=== PATIENT | male | born 1950 | race American Indian/Alaskan Native ===

== ENCOUNTER 2017-07-10 10:12 | Observation (INO) | payer MEDICARE, OTHER ==
[2017-07-10] MEDS ORDERED: NACL 0.9% 1000 ML 1,000 ML IV ONE ×2 (11:45→17:57)
[2017-07-10] MEDS ORDERED: ANTIVERT PO ONE (11:52)
--- NOTE | 2017-07-10 12:04 | Emergency Department Report ---
ED Dizziness HPI - General Chief Complaint: Dizziness Stated Complaint: DIZZINESS, HIGH BLOOD PRESSURE Time Seen by Provider: 07/10/17 11:45 Source: patient Mode of arrival: Ambulatory Limitations: No Limitations - History of Present Illness Initial Comments: 67-year-old male with past medical history of hypertension came in complaining of dizziness for 1 day. Patient said that he is feels dizzy as he gets up. Patient does state that he is dizzy with head movement. Patient denies any nausea vomiting chest pain shortness of breath. Patient denies any fever chills. Patient in no acute distress. Patient relaxing in bed. -: Sudden Timing: sudden onset Description: "room spinning", lightheadedness History of Same: No History of Trauma: No Severity: mild Improves With: remaining still Worsens With: movement Associated Symptoms: denies other symptoms. denies: chest pain, confusion, cough, diaphoresis, fever/chills, loss of appetite, malaise, rash, seizure, shortness of breath, syncope, weakness - Related Data Allergies Allergy/AdvReac Type Severity Reaction Status Date / Time No Known Allergies Allergy Unverified 07/10/17 10:15 ED Review of Systems ROS: Stated complaint: DIZZINESS, HIGH BLOOD PRESSURE Other details as noted in HPI Constitutional: denies: chills, fever Eyes: denies: eye pain, eye discharge, vision change ENT: denies: ear pain, throat pain Respiratory: denies: cough, shortness of breath, wheezing Cardiovascular: denies: chest pain, palpitations Endocrine: no symptoms reported Gastrointestinal: denies: abdominal pain, nausea, diarrhea Genitourinary: denies: urgency, dysuria Musculoskeletal: denies: back pain, joint swelling, arthralgia Skin: denies: rash, lesions Neurological: denies: headache, weakness, paresthesias Psychiatric: denies: anxiety, depression Hematological/Lymphatic: denies: easy bleeding, easy bruising ED Past Medical Hx - Past Medical History Hx Hypertension: Yes Hx GERD: Yes - Social History Smoking Status: Never Smoker Substance Use Type: None ED Physical Exam - General Limitations: No Limitations General appearance: alert, in no apparent distress - Head Head exam: Present: atraumatic, normocephalic - Eye Eye exam: Present: normal appearance - ENT ENT exam: Present: mucous membranes moist - Neck Neck exam: Present: normal inspection - Respiratory Respiratory exam: Present: normal lung sounds bilaterally. Absent: respiratory distress - Cardiovascular Cardiovascular Exam: Present: regular rate, normal rhythm. Absent: systolic murmur, diastolic murmur, rubs, gallop - GI/Abdominal GI/Abdominal exam: Present: soft, normal bowel sounds - Rectal Rectal exam: Present: deferred - Extremities Exam Extremities exam: Present: normal inspection - Back Exam Back exam: Present: normal inspection - Neurological Exam Neurological exam: Present: alert, oriented X3 - Psychiatric Psychiatric exam: Present: normal affect, normal mood - Skin Skin exam: Present: warm, dry, intact, normal color. Absent: rash ED Course Vital Signs 07/10/17 10:15 Temperature 98.3 F Pulse Rate 57 L Respiratory 20 Rate Blood Pressure 176/92 O2 Sat by Pulse 97 Oximetry Critical care attestation.: If time is entered above; I have spent that time in minutes in the direct care of this critically ill patient, excluding procedure time. ED Disposition Condition: Stable Referrals: KARSON MENDOZA MD [Primary Care Provider] - 3-5 Days
--- NOTE | 2017-07-10 12:14 | Emergency Department Report ---
Blank Doc - Documentation Documentation: 67-year-old male past medical history of hypertension came in for dizziness for 1 day. Patient states is worsened with movement. He states that he is having hard time ambulating. He denies any nausea vomiting chest pain shortness of breath. P: blood work, cardiac enzymes, Ct head, and possible admission
[2017-07-10 12:28] LABS: Basophils # (Auto) 0.1 K/mm3 (0.0-0.1); Basophils % (Auto) 1.1 % (0.0-1.8); Eosinophils # (Auto) 0.1 K/mm3 (0.0-0.4); Eosinophils % (Auto) 1.3 % (0.0-4.3); Hematocrit 44.1 % (35.5-45.6); Hemoglobin 14.7 gm/dl (11.8-15.2); Lymphocytes # (Auto) 0.9 K/mm3 (1.2-5.4); Lymphocytes % (Auto) 16.1 % (13.4-35.0); Mean Corpuscular HGB Conc 33 % (32-34); Mean Corpuscular Hemoglobin 29 pg (28-32); Mean Corpuscular Volume 88 fl (84-94); Monocytes # (Auto) 0.4 K/mm3 (0.0-0.8); Monocytes % (Auto) 7.1 % (0.0-7.3); Platelet Count 197 K/mm3 (140-440); Red Blood Count 5.01 M/mm3 (3.65-5.03); Red Cell Distribution Width 14.6 % (13.2-15.2)
[2017-07-10 12:36] LABS: INR 0.9 (0.87-1.13)
[2017-07-10] MEDS ORDERED: ZOFRAN IV ONE (12:41)
--- NOTE | 2017-07-10 12:41 | Emergency Department Report ---
ED General Adult HPI - General Chief complaint: Dizziness Stated complaint: DIZZINESS, HIGH BLOOD PRESSURE Time Seen by Provider: 07/10/17 11:45 Source: patient Mode of arrival: Ambulatory Limitations: No Limitations - History of Present Illness Initial comments: Patient said he woke up this morning and he was feeling very dizzy and he had difficulty walking with unsteady gait. He denies any focal neurological weakness but said he tries to walk he is falling from side to side. He also had a slight headache and nausea. -: Sudden, This morning Location: head Radiation: non-radiation Severity scale (0 -10): 5 Consistency: constant Improves with: other (Remaining still) Worsens with: movement Associated Symptoms: other (Nausea) Treatments Prior to Arrival: none - Related Data Allergies Allergy/AdvReac Type Severity Reaction Status Date / Time No Known Allergies Allergy Unverified 07/10/17 10:15 ED Review of Systems ROS: Stated complaint: DIZZINESS, HIGH BLOOD PRESSURE Other details as noted in HPI Comment: All other systems reviewed and negative Constitutional: denies: chills, fever, weakness Eyes: denies: eye pain, vision change ENT: denies: ear pain, congestion Respiratory: denies: cough, shortness of breath Cardiovascular: denies: chest pain, palpitations Endocrine: no symptoms reported Gastrointestinal: nausea. denies: abdominal pain, vomiting, diarrhea Genitourinary: denies: dysuria, frequency, hematuria Musculoskeletal: denies: back pain, joint swelling, arthralgia Skin: denies: rash, lesions, change in color Neurological: denies: headache, numbness, paresthesias Psychiatric: denies: anxiety, depression Hematological/Lymphatic: denies: easy bleeding, easy bruising ED Past Medical Hx - Past Medical History Hx Hypertension: Yes Hx GERD: Yes - Social History Smoking Status: Never Smoker Substance Use Type: None ED Physical Exam - General Limitations: No Limitations General appearance: alert, in no apparent distress - Head Head exam: Present: atraumatic, normocephalic, normal inspection - Eye Eye exam: Present: normal appearance, PERRL, EOMI Pupils: Present: normal accommodation - ENT ENT exam: Present: normal exam, mucous membranes moist - Neck Neck exam: Present: normal inspection, full ROM. Absent: tenderness - Respiratory Respiratory exam: Present: normal lung sounds bilaterally. Absent: respiratory distress, wheezes, rhonchi - Cardiovascular Cardiovascular Exam: Present: normal rhythm, bradycardia, normal heart sounds - GI/Abdominal GI/Abdominal exam: Present: soft, normal bowel sounds. Absent: tenderness, guarding, rebound - Extremities Exam Extremities exam: Present: normal inspection, full ROM, normal capillary refill. Absent: tenderness, pedal edema - Back Exam Back exam: Present: normal inspection, full ROM - Neurological Exam Neurological exam: Present: alert, oriented X3, CN II-XII intact, abnormal gait. Absent: motor sensory deficit - Psychiatric Psychiatric exam: Present: normal affect, normal mood - Skin Skin exam: Present: warm, dry, intact, normal color. Absent: rash ED Course Vital Signs 07/10/17 07/10/17 07/10/17 10:15 12:40 13:49 Temperature 98.3 F 97.7 F Pulse Rate 57 L 49 L Respiratory 20 19 13 Rate Blood Pressure 176/92 Blood Pressure 158/87 [Left] O2 Sat by Pulse 97 97 97 Oximetry 07/10/17 14:42 Temperature Pulse Rate 59 L Respiratory 16 Rate Blood Pressure Blood Pressure 151/84 [Left] O2 Sat by Pulse 98 Oximetry - Reevaluation(s) Reevaluation #1: 07/10/17 18:00 I consulted the tele neurologist financial operations consultant Dr Norris. He recommended admitting the patient to the hospital for further evaluation and management. I discussed patient care with the hospitalist on-call Dr. Subramanian. He will admit the patient for observation and further evaluation and management. ED Medical Decision Making - Lab Data Result diagrams: 07/10/17 12:07 07/10/17 12:07 - EKG Data -: EKG Interpreted by Me EKG shows normal: sinus rhythm Rate: bradycardia - EKG Data When compared to previous EKG there are: previous EKG unavailable Interpretation: other (No STEMI) - Radiology Data Radiology results: report reviewed, image reviewed MRI Brain without contrast showed no acute CVA or brain mass. - Medical Decision Making Unsteady gait. Dizziness. Hypertension. Critical care attestation.: If time is entered above; I have spent that time in minutes in the direct care of this critically ill patient, excluding procedure time. ED Disposition Clinical Impression: RYAN (acute kidney injury), Unsteady gait Hypertension Qualifiers: Hypertension type: unspecified Qualified Code(s): I10 - Essential (primary) hypertension Disposition: OP ADMIT IP TO THIS HOSP Is pt being admited?: Yes Does the pt Need Aspirin: Yes Condition: Stable Instructions: Hypertension (ED) Referrals: KARSON MENDOZA MD [Primary Care Provider] - 3-5 Days Time of Disposition: 18:03
[2017-07-10 12:44] LABS: Alanine Aminotransferase 21 units/L (7-56); Albumin 4.4 g/dL (3.9-5); BUN/Creatinine Ratio 16; Blood Urea Nitrogen 28 mg/dL (9-20); Calcium 9.5 mg/dL (8.4-10.2); Hemolysis Index 5
[2017-07-10 13:02] LABS: Creatine Kinase MB 4.6 ng/mL (0.0-4.0)
[2017-07-10 14:23] LABS: Bilirubin,Urine NEG (Negative); Blood,Urine MOD (Negative); Color,Urine Yellow (Yellow); Mucus,Urine FEW /HPF; Urobilinogen,Urine < 2.0 mg/dL (<2.0)
--- NOTE | 2017-07-10 14:44 | Magnetic Resonance Report ---
FINAL REPORT EXAM: MR BRAIN WO CON HISTORY: Unsteady gait, Dizziness. TECHNIQUE: Multiplanar multisequence brain MR imaging without IV contrast. PRIORS: None. FINDINGS: The included air filled sinuses contain no acute fluid level. Foci of hyperintensity in the cerebral white matter, while nonspecific, are present and usually attributed to chronic ischemic gliosis. It can occur secondary to the normal aging process, hypertension, vasculitis, migraine related changes, or arterial sclerotic vascular disease. The differential includes any cause of gliosis as well as demyelination in the appropriate clinical setting. There is ventricular and sulcal prominence compatible with global symmetric cerebrocortical atrophy. The brain is without mass, mass effect, hemorrhage, or acute infarct. There are no areas of brain restricted diffusion to suggest an acute ischemic infarct. There is no midline shift or brain edema. IMPRESSION: No acute CVA or brain mass
[2017-07-10] MEDS ORDERED: BABY ASPIRIN PO ONE (18:06)
--- NOTE | 2017-07-10 19:41 | History and Physical Report ---
History of Present Illness Date of examination: 07/10/17 Date of admission: 07/10/17 18:50 Chief complaint: Chief complaint: Dizziness and unsteady gait for 1 day History of present illness: History of Present Illness: 67-year-old -[place] male with history of hypertension and gout comes in for feeling dizzy and unsteady gait. No shortness of breath no chest pain. Patient has not been taking his blood pressure medications regularly. No focal deficits. No nasal regurgitation of fluids. No fever no chills No recent travel Past Medical History Hx Hypertension: Yes Hx GERD: Yes Social History Smoking Status: Never Smoker Substance Use Type: None Family history Hypertension Surgical history None Review of Systems ROS: Stated complaint: DIZZINESS, HIGH BLOOD PRESSURE Other details as noted in HPI Comment: All other systems reviewed and negative Constitutional: denies: chills, fever, weakness Eyes: denies: eye pain, vision change ENT: denies: ear pain, congestion Respiratory: denies: cough, shortness of breath Cardiovascular: denies: chest pain, palpitations Endocrine: no symptoms reported Gastrointestinal: nausea. denies: abdominal pain, vomiting, diarrhea Genitourinary: denies: dysuria, frequency, hematuria Musculoskeletal: denies: back pain, joint swelling, arthralgia Skin: denies: rash, lesions, change in color Neurological: denies: headache, numbness, paresthesias Psychiatric: denies: anxiety, depression Hematological/Lymphatic: denies: easy bleeding, easy bruising Medications and Allergies Allergies Allergy/AdvReac Type Severity Reaction Status Date / Time No Known Allergies Allergy Unverified 07/10/17 10:15 Home Medications Medication Instructions Recorded Confirmed Last Taken Type Allopurinol [Zyloprim] 100 mg PO QDAY 07/10/17 07/10/17 07/10/17 08:00 History Hydrochlorothiazide 25 mg PO DAILY 07/10/17 07/10/17 07/10/17 08:00 History Losartan Potassium [Cozaar] 50 mg PO DAILY 07/10/17 07/10/17 07/10/17 08:00 History Sodium Bicarbonate 650 mg PO BID 07/10/17 07/10/17 07/10/17 19:00 History Exam - Constitutional Vitals: Temp Pulse Resp BP Pulse Ox 97.6 F 46 L 20 152/75 97 07/10/17 18:49 07/10/17 18:49 07/10/17 18:49 07/10/17 18:49 07/10/17 18:49 General appearance: Present: no acute distress, well-nourished - EENT Eyes: Present: PERRL ENT: hearing intact, clear oral mucosa - Neck Neck: Present: supple, normal ROM - Respiratory Respiratory effort: normal Respiratory: bilateral: CTA - Cardiovascular Heart rate: 80 Rhythm: regular Heart Sounds: Present: S1 & S2. Absent: rub, click - Extremities Extremities: pulses symmetrical, No edema Peripheral Pulses: within normal limits - Abdominal General gastrointestinal: Present: soft, non-tender, non-distended, normal bowel sounds Male genitourinary: Present: normal - Rectal Rectal Exam: deferred - Integumentary Integumentary: Present: clear, warm, dry - Musculoskeletal Musculoskeletal: gait normal, strength equal bilaterally - Psychiatric Psychiatric: appropriate mood/affect, intact judgment & insight - Neurologic Neurologic: CNII-XII intact, moves all extremities - Allied Health Allied health notes reviewed: nursing, case management Results - Labs CBC & Chem 7: 07/10/17 12:07 07/10/17 12:07 Labs: Laboratory Last Values WBC 5.3 K/mm3 (4.5-11.0) 07/10/17 12:07 RBC 5.01 M/mm3 (3.65-5.03) 07/10/17 12:07 Hgb 14.7 gm/dl (11.8-15.2) 07/10/17 12:07 Hct 44.1 % (35.5-45.6) 07/10/17 12:07 MCV 88 fl (84-94) 07/10/17 12:07 MCH 29 pg (28-32) 07/10/17 12:07 MCHC 33 % (32-34) 07/10/17 12:07 RDW 14.6 % (13.2-15.2) 07/10/17 12:07 Plt Count 197 K/mm3 (140-440) 07/10/17 12:07 Lymph % (Auto) 16.1 % (13.4-35.0) 07/10/17 12:07 [place] % (Auto) 7.1 % (0.0-7.3) 07/10/17 12:07 Eos % (Auto) 1.3 % (0.0-4.3) 07/10/17 12:07 Baso % (Auto) 1.1 % (0.0-1.8) 07/10/17 12:07 Lymph # 0.9 K/mm3 (1.2-5.4) L 07/10/17 12:07 [place] # 0.4 K/mm3 (0.0-0.8) 07/10/17 12:07 Eos # 0.1 K/mm3 (0.0-0.4) 07/10/17 12:07 Baso # 0.1 K/mm3 (0.0-0.1) 07/10/17 12:07 Seg Neutrophils % 74.4 % (40.0-70.0) H 07/10/17 12:07 Seg Neutrophils # 4.0 K/mm3 (1.8-7.7) 07/10/17 12:07 PT 12.6 Sec. (12.2-14.9) 07/10/17 12:07 INR 0.90 (0.87-1.13) 07/10/17 12:07 APTT 32.3 Sec. (24.2-36.6) 07/10/17 12:07 Sodium 138 mmol/L (137-145) 07/10/17 12:07 Potassium 4.0 mmol/L (3.6-5.0) 07/10/17 12:07 Chloride 99.5 mmol/L (98-107) 07/10/17 12:07 Carbon Dioxide 28 mmol/L (22-30) 07/10/17 12:07 Anion Gap 15 mmol/L 07/10/17 12:07 BUN 28 mg/dL (9-20) H 07/10/17 12:07 Creatinine 1.8 mg/dL (0.8-1.5) H 07/10/17 12:07 Estimated GFR 46 ml/min 07/10/17 12:07 BUN/Creatinine Ratio 16 % 07/10/17 12:07 Glucose 108 mg/dL (75-100) H 07/10/17 12:07 Calcium 9.5 mg/dL (8.4-10.2) 07/10/17 12:07 Total Bilirubin 0.50 mg/dL (0.1-1.2) 07/10/17 12:07 AST 25 units/L (5-40) 07/10/17 12:07 ALT 21 units/L (7-56) 07/10/17 12:07 Alkaline Phosphatase 80 units/L (35-129) 07/10/17 12:07 Total Creatine Kinase 448 units/L (55-170) H 07/10/17 12:07 CK-MB (CK-2) 4.6 ng/mL (0.0-4.0) H 07/10/17 12:07 CK-MB (CK-2) Rel Index 1.0 (0-4) 07/10/17 12:07 Troponin T < 0.010 ng/mL (0.00-0.029) 07/10/17 12:07 Total Protein 7.8 g/dL (6.3-8.2) 07/10/17 12:07 Albumin 4.4 g/dL (3.9-5) 07/10/17 12:07 Albumin/Globulin Ratio 1.3 % 07/10/17 12:07 Urine Color Yellow (Yellow) 07/10/17 14:04 Urine Turbidity Clear (Clear) 07/10/17 14:04 Urine pH 5.0 (5.0-7.0) 07/10/17 14:04 Ur Specific [place] 1.016 (1.003-1.030) 07/10/17 14:04 Urine Protein 100 mg/dl mg/dL (Negative) 07/10/17 14:04 Urine Glucose (UA) Neg mg/dL (Negative) 07/10/17 14:04 Urine Ketones Neg mg/dL (Negative) 07/10/17 14:04 Urine Blood Mod (Negative) 07/10/17 14:04 Urine Nitrite Neg (Negative) 07/10/17 14:04 Urine Bilirubin Neg (Negative) 07/10/17 14:04 Urine Urobilinogen < 2.0 mg/dL (<2.0) 07/10/17 14:04 Ur Leukocyte Esterase Neg (Negative) 07/10/17 14:04 Urine WBC (Auto) 1.0 /HPF (0.0-6.0) 07/10/17 14:04 Urine RBC (Auto) 3.0 /HPF (0.0-6.0) 07/10/17 14:04 Urine Mucus Few /HPF 07/10/17 14:04 - Imaging and Cardiology EKG: report reviewed (sinus bradycardia heart rate of 51 permanent) Imaging and Cardiology: MRI brain no acute severe brain metastases Assessment and Plan Advance Directives: Yes (full code) VTE prophylaxis?: Chemical Plan of care discussed with patient/family: Yes - Patient Problems (1) RYAN (acute kidney injury) Current Visit: Yes Status: Acute Plan to address problem: Probably secondary to hydrochlorothiazide We will stop the hydrochlorothiazide IV fluids for now Check BMP again tomorrow Nephrology consult if necessary (2) Hypertension Current Visit: Yes Status: Chronic Qualifiers: Hypertension type: essential hypertension Qualified Code(s): I10 - Essential (primary) hypertension Plan to address problem: Continue antihypertensives but to hold hydrochlorothiazide (3) Unsteady gait Current Visit: Yes Status: Acute Plan to address problem: Unsteady gait resolved Patient able to walk normally Have made the patient walked in the emergency room Unsteady gait transient probably secondary to high blood pressure (4) DVT prophylaxis Current Visit: Yes Status: Acute Plan to address problem: Heparin 5000 every 12
[2017-07-10] MEDS ORDERED: ZOFRAN IV PRN (19:48)
[2017-07-10] MEDS ORDERED: TYLENOL PO PRN (19:48)
[2017-07-10] MEDS ORDERED: SODIUM CHLORIDE FLUSH SYRINGE 10 ML IV PRN (19:48)
[2017-07-10] MEDS: COZAAR PO SCH (20:31)
[2017-07-10] MEDS: ZYLOPRIM PO SCH (20:32)
[2017-07-10] MEDS: NACL 0.45% 1000 ML 1,000 ML IV SCH (20:34)
[2017-07-10] MEDS: SODIUM BICARBONATE PO SCH (21:45)
[2017-07-10] MEDS: SODIUM CHLORIDE FLUSH SYRINGE 10 ML IV SCH (21:45)
[2017-07-10] MEDS ORDERED: COREG PO SCH (22:00)
[2017-07-11 08:42] VITALS: BP 144/84
[2017-07-11] MEDS: COZAAR PO SCH (09:34)
[2017-07-11] MEDS: SODIUM BICARBONATE PO SCH (09:35)
[2017-07-11] MEDS: ZYLOPRIM PO SCH (09:35)
[2017-07-11] MEDS: SODIUM CHLORIDE FLUSH SYRINGE 10 ML IV SCH (09:37)
[2017-07-11] MEDS: NACL 0.45% 1000 ML 1,000 ML IV SCH (09:54)
[2017-07-11] MEDS ORDERED: NORVASC PO SCH (10:00)
[2017-07-11 10:11] LABS: Calcium 8.7 mg/dL (8.4-10.2)
--- NOTE | 2017-07-11 11:25 | Progress Note ---
Assessment and Plan Assessment and plan: --Acute kidney injury; secondary to ATN Continue gentle hydration, closely monitor renal function, avoid nephrotoxins Nephrology consult if needed,creatinine improved from 1.8-1.6 --Hypernatremia; probably secondary to aggressive IV hydration with normal saline, will change to half normal, encourage patient to drink plenty of fluids --Unsteady gait; MRI brain negative, physical therapy occupational therapy --Hypertension; continue current antihypertensives, Norvasc and Cozaar and when necessary medications --History of gout; continue allopurinol DC hydrochlorothiazide, --DVT prophylaxis; Lovenox renal dose closely monitor the patient and adjust the management as needed Possible discharge in 1-2 days if stable Hospitalist Physical - Constitutional Vitals: Temp Pulse Resp BP Pulse Ox 97.6 F 46 L 20 144/84 97 07/11/17 08:01 07/11/17 08:01 07/11/17 08:01 07/11/17 08:01 07/11/17 08:01 General appearance: Present: no acute distress, well-nourished Results - Labs CBC & Chem 7: 07/10/17 12:07 07/11/17 09:18 Labs: Laboratory Last Values WBC 5.3 K/mm3 (4.5-11.0) 07/10/17 12:07 RBC 5.01 M/mm3 (3.65-5.03) 07/10/17 12:07 Hgb 14.7 gm/dl (11.8-15.2) 07/10/17 12:07 Hct 44.1 % (35.5-45.6) 07/10/17 12:07 MCV 88 fl (84-94) 07/10/17 12:07 MCH 29 pg (28-32) 07/10/17 12:07 MCHC 33 % (32-34) 07/10/17 12:07 RDW 14.6 % (13.2-15.2) 07/10/17 12:07 Plt Count 197 K/mm3 (140-440) 07/10/17 12:07 Lymph % (Auto) 16.1 % (13.4-35.0) 07/10/17 12:07 [place] % (Auto) 7.1 % (0.0-7.3) 07/10/17 12:07 Eos % (Auto) 1.3 % (0.0-4.3) 07/10/17 12:07 Baso % (Auto) 1.1 % (0.0-1.8) 07/10/17 12:07 Lymph # 0.9 K/mm3 (1.2-5.4) L 07/10/17 12:07 [place] # 0.4 K/mm3 (0.0-0.8) 07/10/17 12:07 Eos # 0.1 K/mm3 (0.0-0.4) 07/10/17 12:07 Baso # 0.1 K/mm3 (0.0-0.1) 07/10/17 12:07 Seg Neutrophils % 74.4 % (40.0-70.0) H 07/10/17 12:07 Seg Neutrophils # 4.0 K/mm3 (1.8-7.7) 07/10/17 12:07 PT 12.6 Sec. (12.2-14.9) 07/10/17 12:07 INR 0.90 (0.87-1.13) 07/10/17 12:07 APTT 32.3 Sec. (24.2-36.6) 07/10/17 12:07 Sodium 147 mmol/L (137-145) H D 07/11/17 09:18 Potassium 4.4 mmol/L (3.6-5.0) 07/11/17 09:18 Chloride 110.0 mmol/L (98-107) H 07/11/17 09:18 Carbon Dioxide 25 mmol/L (22-30) 07/11/17 09:18 Anion Gap 16 mmol/L 07/11/17 09:18 BUN 22 mg/dL (9-20) H 07/11/17 09:18 Creatinine 1.6 mg/dL (0.8-1.5) H 07/11/17 09:18 Estimated GFR 52 ml/min 07/11/17 09:18 BUN/Creatinine Ratio 14 % 07/11/17 09:18 Glucose 122 mg/dL (75-100) H 07/11/17 09:18 Calcium 8.7 mg/dL (8.4-10.2) 07/11/17 09:18 Total Bilirubin 0.50 mg/dL (0.1-1.2) 07/10/17 12:07 AST 25 units/L (5-40) 07/10/17 12:07 ALT 21 units/L (7-56) 07/10/17 12:07 Alkaline Phosphatase 80 units/L (35-129) 07/10/17 12:07 Total Creatine Kinase 448 units/L (55-170) H 07/10/17 12:07 CK-MB (CK-2) 4.6 ng/mL (0.0-4.0) H 07/10/17 12:07 CK-MB (CK-2) Rel Index 1.0 (0-4) 07/10/17 12:07 Troponin T < 0.010 ng/mL (0.00-0.029) 07/10/17 12:07 Total Protein 7.8 g/dL (6.3-8.2) 07/10/17 12:07 Albumin 4.4 g/dL (3.9-5) 07/10/17 12:07 Albumin/Globulin Ratio 1.3 % 07/10/17 12:07 Urine Color Yellow (Yellow) 07/10/17 14:04 Urine Turbidity Clear (Clear) 07/10/17 14:04 Urine pH 5.0 (5.0-7.0) 07/10/17 14:[address] 1.016 (1.003-1.030) 07/10/17 14:04 Urine Protein 100 mg/dl mg/dL (Negative) 07/10/17 14:04 Urine Glucose (UA) Neg mg/dL (Negative) 07/10/17 14:04 Urine Ketones Neg mg/dL (Negative) 07/10/17 14:04 Urine Blood Mod (Negative) 07/10/17 14:04 Urine Nitrite Neg (Negative) 07/10/17 14:04 Urine Bilirubin Neg (Negative) 07/10/17 14:04 Urine Urobilinogen < 2.0 mg/dL (<2.0) 07/10/17 14:04 Ur Leukocyte Esterase Neg (Negative) 07/10/17 14:04 Urine WBC (Auto) 1.0 /HPF (0.0-6.0) 07/10/17 14:04 Urine RBC (Auto) 3.0 /HPF (0.0-6.0) 07/10/17 14:04 Urine Mucus Few /HPF 07/10/17 14:04
[2017-07-11 11:27] LABS: Creatine Kinase MB 2.7 ng/mL (0.0-4.0)
[2017-07-11] MEDS ORDERED: D5W 1,000 ML IV SCH (12:00)
--- NOTE | 2017-07-11 15:17 | Discharge Summary ---
Providers - Providers Date of Admission: 07/10/17 18:50 Date of discharge: 07/11/17 Attending physician: MEGAN ACEVEDO Primary care physician: KARSON MENDOZA Hospitalization Condition: Stable Disposition: DC-01 TO HOME OR SELFCARE Time spent for discharge: 31 min Core Measure Documentation - Palliative Care Palliative Care/ Comfort Measures: Not Applicable - Core Measures Any of the following diagnoses?: none Exam - Constitutional Vitals: Temp Pulse Resp BP Pulse Ox 97.6 F 46 L 20 144/84 97 07/11/17 08:01 07/11/17 08:01 07/11/17 08:01 07/11/17 08:01 07/11/17 08:01 General appearance: Present: no acute distress, well-nourished - EENT Eyes: Present: PERRL, EOM intact - Neck Neck: Present: supple, normal ROM - Respiratory Respiratory effort: normal Respiratory: negative: rales, rhonchi, wheezing - Cardiovascular Rhythm: regular Heart Sounds: Present: S1 & S2 - Extremities Extremities: no ischemia, No edema - Abdominal General gastrointestinal: Present: soft, non-tender, non-distended - Integumentary Integumentary: Present: clear, warm - Musculoskeletal Musculoskeletal: strength equal bilaterally - Psychiatric Psychiatric: appropriate mood/affect, cooperative - Neurologic Neurologic: CNII-XII intact, moves all extremities Plan Activity: advance as tolerated, fall precautions Diet: low salt Additional Instructions: Fall precautions. If you have chest pain shortness of breath recurrent episodes of dizziness contact M.D. or go to emergency room Follow up with: KARSON MENDOZA MD [Primary Care Provider] - 3-5 Days Prescriptions: amLODIPine [Norvasc] 10 mg PO QDAY #30 tablet Losartan [Cozaar] 100 mg PO DAILY #30 tablet
--- NOTE | 2017-07-14 12:57 | XRay Report ---
ROUTINE CHEST, TWO VIEWS: HISTORY: Lightheadedness, dizziness. The trachea, heart, mediastinal contour, lung byers and bony thorax are unremarkable. IMPRESSION: Unremarkable chest x-ray.
--- NOTE | 2017-07-14 12:57 | Cat Scan Report ---
CT HEAD WITHOUT CONTRAST: HISTORY: Lightheadedness, dizziness. TECHNIQUE: Sequential 2.5mm CT images. COMPARISON: none. FINDINGS: Cerebral Parenchyma: Within normal limits. Cerebellum: Within normal limits. Brainstem: Within normal limits. Ventricles: Normal. Sella: Normal. Extra-axial spaces: Normal. Basal Cisterns: Normal. Intracranial Hemorrhage: None. Midline Shift: None. Calvarium: Normal. Sinuses: Normal. Mastoid Air Cells: Normal. Visualized Orbits: Normal. IMPRESSION: Cranial CT scan within normal limits.
== END 2017-07-11 16:32 | disposition home or self-care (01) ==
LOC: ED 10:12 → 3A 18:50 → INTOOBSV 18:50
PROVIDERS: ADMIT Internal Medicine; ATTEND Internal Medicine
DX: N17.9 Acute kidney failure, unspecified (principal); I10 Essential (primary) hypertension; K21.9 Gastro-esophageal reflux disease without esophagitis
CPT/HCPCS: 36415; 70450; 70551; 71045; 80048; 80053; 81001; 82550; 82553; 84484; 85025; 85610; 85730; 93005; 93010; 96361; 96374; 99285; G0378; J2405; J7030; J7070

== ENCOUNTER 2018-06-14 15:36 | Emergency (ER) | payer MEDICARE ==
--- NOTE | 2018-06-14 15:52 | Emergency Department Report ---
Chief Complaint: Abdominal Pain Stated Complaint: ABD PAIN Time Seen by Provider: 06/14/18 15:50 - HPI History of Present Illness: pt presents with generalized abd pain that began last night + N/V states cannot have a BM today (+) frequency denies dysuria or hematuria able to tolerate fluids PMHx HTN non smoker occ drinker no drug use MSE screening note: Focused history and physical exam performed. Due to findings the following was ordered: UA, labs ED Disposition for MSE Condition: Stable
[2018-06-14 15:53] VITALS: BP 169/99
[2018-06-14 16:46] LABS: Basophils # (Auto) 0.1 K/mm3 (0.0-0.1); Basophils % (Auto) 0.8 % (0.0-1.8); Eosinophils % (Auto) 0.4 % (0.0-4.3); Hematocrit 46.2 % (35.5-45.6); Hemoglobin 15.8 gm/dl (11.8-15.2); Lymphocytes # (Auto) 1.2 K/mm3 (1.2-5.4); Lymphocytes % (Auto) 11.2 % (13.4-35.0); Mean Corpuscular HGB Conc 34 % (32-34); Mean Corpuscular Volume 88 fl (84-94); Monocytes # (Auto) 0.6 K/mm3 (0.0-0.8); Monocytes % (Auto) 6.1 % (0.0-7.3); Platelet Count 230 K/mm3 (140-440); Red Blood Count 5.28 M/mm3 (3.65-5.03)
[2018-06-14 17:08] LABS: Albumin 4.5 g/dL (3.9-5)
[2018-06-14 17:42] LABS: Color,Urine Yellow (Yellow)
[2018-06-14 17:43] LABS: Bilirubin,Urine NEG (Negative); Blood,Urine MOD (Negative); Hyaline Casts,Urine 1 /LPF; Protein,Urine >500 mg/dL (Negative); Urobilinogen,Urine < 2.0 mg/dL (<2.0)
[2018-06-14] MEDS ORDERED: ZOFRAN ODT PO ONE (17:50)
--- NOTE | 2018-06-14 18:22 | Emergency Department Report ---
ED Abdominal Pain HPI - General Chief Complaint: Abdominal Pain Stated Complaint: ABD PAIN Time Seen by Provider: 06/14/18 15:50 Source: patient Mode of arrival: Ambulatory Limitations: No Limitations - History of Present Illness Initial Comments: Extending 8-year-old -[place] male presents to the emergency room for complaint of abdominal pain with nausea vomiting constipation 2 days. Patient reports that his last BM was 06/13/2018. Patient reports that he uses he has a bowel movement after he eats meals. Patient complains of increased urination. He vomited 2 times yesterday and one time today. He complains of nausea at this time. He reports his pain for 4-5 out of 10. He is seen by Dr. Jamil which she saw today and she referred him to the emergency room. MD Complaint: abdominal pain -: days(s) (1) Location: diffuse Radiation: none Migration to: no migration Severity scale (0 -10): 5 Quality: sharp Consistency: intermittent Improves With: nothing Worsens With: nothing Associated Symptoms: nausea, vomiting, constipation - Related Data Home Medications Medication Instructions Recorded Confirmed Last Taken Allopurinol [Zyloprim] 100 mg PO QDAY 07/10/17 07/10/17 07/10/17 08:00 Previous Rx's Medication Instructions Recorded Last Taken Type Losartan [Cozaar] 100 mg PO DAILY #30 tablet 07/11/17 Unknown Rx amLODIPine [Norvasc] 10 mg PO QDAY #30 tablet 07/11/17 Unknown Rx Acetaminophen/Codeine [Tylenol 1 tab PO Q6H PRN #8 tab 06/14/18 Unknown Rx /Codeine # 3 tab] Allergies Allergy/AdvReac Type Severity Reaction Status Date / Time No Known Allergies Allergy Unverified 07/10/17 10:15 ED Review of Systems ROS: Stated complaint: ABD PAIN Other details as noted in HPI Comment: All other systems reviewed and negative Constitutional: denies: chills, fever Eyes: denies: eye pain, eye discharge, vision change ENT: denies: ear pain, throat pain Respiratory: denies: cough, shortness of breath, wheezing Cardiovascular: denies: chest pain, palpitations Endocrine: no symptoms reported Gastrointestinal: abdominal pain, nausea, vomiting, constipation Genitourinary: frequency Musculoskeletal: denies: back pain, joint swelling, arthralgia Skin: denies: rash, lesions Neurological: denies: headache, weakness, paresthesias Psychiatric: denies: anxiety, depression Hematological/Lymphatic: as per HPI ED Past Medical Hx - Past Medical History Previous Medical History?: Yes Hx Hypertension: Yes Hx GERD: Yes - Surgical History Additional Surgical History: ankle surgery, knee surgery - Social History Smoking Status: Never Smoker Substance Use Type: None - Medications Home Medications: Home Medications Medication Instructions Recorded Confirmed Last Taken Type Allopurinol [Zyloprim] 100 mg PO QDAY 07/10/17 07/10/17 07/10/17 08:00 History Losartan [Cozaar] 100 mg PO DAILY #30 tablet 07/11/17 Unknown Rx amLODIPine [Norvasc] 10 mg PO QDAY #30 tablet 07/11/17 Unknown Rx Acetaminophen/Codeine [Tylenol 1 tab PO Q6H PRN #8 tab 06/14/18 Unknown Rx /Codeine # 3 tab] ED Physical Exam - General Limitations: No Limitations General appearance: alert, in no apparent distress - Head Head exam: Present: atraumatic, normocephalic - Eye Eye exam: Present: normal appearance - ENT ENT exam: Present: mucous membranes moist - Neck Neck exam: Present: normal inspection, full ROM - Respiratory Respiratory exam: Present: normal lung sounds bilaterally. Absent: respiratory distress - Cardiovascular Cardiovascular Exam: Present: regular rate, normal rhythm. Absent: systolic murmur, diastolic murmur, rubs, gallop - GI/Abdominal GI/Abdominal exam: Present: soft, tenderness (epigastric), normal bowel sounds. Absent: distended - Extremities Exam Extremities exam: Present: normal inspection, full ROM - Back Exam Back exam: Present: normal inspection, full ROM. Absent: tenderness - Neurological Exam Neurological exam: Present: alert, oriented X3, normal gait - Psychiatric Psychiatric exam: Present: normal affect, normal mood - Skin Skin exam: Present: warm, dry, intact, normal color. Absent: rash ED Course Vital Signs 06/14/18 15:50 Temperature 98.1 F Pulse Rate 95 H Respiratory 19 Rate Blood Pressure 169/99 [Left] O2 Sat by Pulse 100 Oximetry ED Medical Decision Making - Lab Data Result diagrams: 06/14/18 16:27 06/14/18 16:27 Labs 06/14/18 06/14/18 06/14/18 16:27 16:27 17:26 WBC 10.5 RBC 5.28 H Hgb 15.8 H Hct 46.2 H MCV 88 MCH 30 MCHC 34 RDW 14.0 Plt Count 230 Lymph % (Auto) 11.2 L [place] % (Auto) 6.1 Eos % (Auto) 0.4 Baso % (Auto) 0.8 Lymph # 1.2 [place] # 0.6 Eos # 0.0 Baso # 0.1 Seg Neutrophils % 81.5 H Seg Neutrophils # 8.5 H Sodium 138 Potassium 4.2 Chloride 99.4 Carbon Dioxide 24 Anion Gap 19 BUN 20 Creatinine 1.9 H Estimated GFR 43 BUN/Creatinine Ratio 11 Glucose 104 H Calcium 10.0 Total Bilirubin 0.70 AST 23 ALT 14 Alkaline Phosphatase 70 Total Protein 8.1 Albumin 4.5 Albumin/Globulin Ratio 1.3 Lipase 29 Urine Color Yellow Urine Turbidity Clear Urine pH 5.0 Ur Specific [place] 1.013 Urine Protein >500 Urine Glucose (UA) Neg Urine Ketones Neg Urine Blood Mod Urine Nitrite Neg Urine Bilirubin Neg Urine Urobilinogen < 2.0 Ur Leukocyte Esterase Neg Urine WBC (Auto) 1.0 Urine RBC (Auto) 1.0 Hyaline Casts 1 - Radiology Data Radiology results: report reviewed Patient: KOSTAS GONCALVES MR#: [id number] : 1950 Acct:[id number] Age/Sex: 68 / M ADM Date: 06/14/18 Loc: ED Attending Dr: Ordering Physician: LI WOLFF Date of Service: 06/14/18 Procedure(s): CT abdomen pelvis wo con Accession Number(s): [id number] cc: LI WOLFF PROCEDURE: CT abdomen and pelvis without contrast. TECHNIQUE: Computerized axial tomography of the abdomen and pelvis was performed without intravenous contrast. This study is performed without intravascular contrast material and its sensitivity for abdominal and pelvic pathology, including neoplasms, inflamma tion, abscess, free fluid, thrombosis, arterial dissection and infarction, is reduced compared with a contrast enhanced study. CT DOSE LENGTH PRODUCT: 1235 mGycm HISTORY: epigastric pain with nausea COMPARISONS: None. FINDINGS: The lung bases are clear. There are no pleural effusions. The heart size is normal. The liver, pancreas and spleen are grossly normal. The gallbladder is present. There is no biliary dilatation. The adrenal glands are not enlarged. There is at least one and possibly 2 solid masses in the left kidney. The largest is in the upper half of the kidney arising anteriorly. This mass measures 4.1 cm x 3.9 cm in cross-section. There are some coarse calcifications within the mass. There is a vague area of lower attenuation in the lower pole of the left kidney. This could also represent a solid mass. It measures approximately 2.2 cm in diameter. There is a smaller cortical mass arising laterally from the right kidney. This is in the lower half of the right kidney. This mass measures 2.3 cm x 2.0 cm in cross-section. It also contains some coarse peripheral and central calcification. I see no definite fat density in any of these masses. These findings could represent bilateral renal cell carcinomas. Other tumors are possible. Further evaluation with a contrast enhanced CT scan is recommended. The abdominal aorta has a normal caliber. There is atherosclerotic calcification in the abdominal aorta and iliac arteries. There is no retroperitoneal adenopathy. The unopacified gastrointestinal tract is unremarkable. A normal appendix is visible. There is a small umbilical hernia containing fat. There is a small right inguinal canal hernia containing fat. The bladder and seminal vesicles appear normal. The prostate is mildly enlarged. 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 IMPRESSION: Bilateral renal tumors which could be malignant. Further evaluation with a contrast enhanced CT scan is recommended. Atherosclerosis. Mild enlargement of the prostate. Small umbilical hernia and right inguinal canal hernia, both containing fat. This document is electronically signed by Robert Obrien MD., June 14 2018 07:23:08 PM ET Transcribed By: MRM Dictated By: ROBERT OBRIEN MD Electronically Authenticated By: ROBERT OBRIEN MD Signed Date/Time: 06/14/181924 DD/ 38 TD/TT: 06/14/18 1840 - Medical Decision Making Patient's been evaluated by this provider fast track. Discussed case with Dr. Pathak. Patient be referred to his primary care provider in a environmental tech. Patient reports he does have a kidney specialist discussed the patient to follow up with his kidney specialist in regards to his elevation of his serum creatinine from 1.8-1.9. Patient verbalized understanding. Critical care attestation.: If time is entered above; I have spent that time in minutes in the direct care of this critically ill patient, excluding procedure time. ED Disposition Clinical Impression: Kidney tumor Abdominal pain Qualifiers: Abdominal location: epigastric Qualified Code(s): R10.13 - Epigastric pain Disposition: TO HOME OR SELFCARE Is pt being admited?: No Does the pt Need Aspirin: No Condition: Stable Instructions: Abdominal Pain (ED) Additional Instructions: Take medications as prescribed. It's very importantly to follow-up with her primary care provider and a kidney specialist. I have listed one below for your convenience. Do not operate heavy machinery while taking Tylenol No. 3. Prescriptions: Acetaminophen/Codeine [Tylenol /Codeine # 3 tab] 1 tab PO Q6H PRN #8 tab PRN Reason: Pain , Severe (7-10) Referrals: ADWOA MENDOZA MD [Primary Care Provider] - 3-5 Days MACKENZIE MISHRA MD, PHD [Referring] - 3-5 Days Forms: Work/School Release Form(ED)
--- NOTE | 2018-06-14 19:25 | Cat Scan Report ---
PROCEDURE: CT abdomen and pelvis without contrast. TECHNIQUE: Computerized axial tomography of the abdomen and pelvis was performed without intravenous contrast. This study is performed without intravascular contrast material and its sensitivity for ab dominal and pelvic pathology, including neoplasms, inflammation, abscess, free fluid, thrombosis, art erial dissection and infarction, is reduced compared with a contrast enhanced study. CT DOSE LENGTH PRODUCT: 1235 mGycm HISTORY: epigastric pain with nausea COMPARISONS: None. FINDINGS: The lung bases are clear. There are no pleural effusions. The heart size is normal. The liver, pancre as and spleen are grossly normal. The gallbladder is present. There is no biliary dilatation. The adr enal glands are not enlarged. There is at least one and possibly 2 solid masses in the left kidney. T he largest is in the upper half of the kidney arising anteriorly. This mass measures 4.1 cm x 3.9 cm in cross-section. There are some coarse calcifications within the mass. There is a vague area of lowe r attenuation in the lower pole of the left kidney. This could also represent a solid mass. It measur es approximately 2.2 cm in diameter. There is a smaller cortical mass arising laterally from the righ t kidney. This is in the lower half of the right kidney. This mass measures 2.3 cm x 2.0 cm in cross- section. It also contains some coarse peripheral and central calcification. I see no definite fat den sity in any of these masses. These findings could represent bilateral renal cell carcinomas. Other tu mors are possible. Further evaluation with a contrast enhanced CT scan is recommended. The abdominal aorta has a normal caliber. There is atherosclerotic calcification in the abdominal aorta and iliac a rteries. There is no retroperitoneal adenopathy. The unopacified gastrointestinal tract is unremarkab le. A normal appendix is visible. There is a small umbilical hernia containing fat. There is a small right inguinal canal hernia containing fat. The bladder and seminal vesicles appear normal. The prost ate is mildly enlarged. 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 IMPRESSION: Bilateral renal tumors which could be malignant. Further evaluation with a contrast enha nced CT scan is recommended. Atherosclerosis. Mild enlargement of the prostate. Small umbilical herni a and right inguinal canal hernia, both containing fat. This document is electronically signed by Robert Granda MD., June 14 2018 07:23:08 PM ET
== END 2018-06-14 20:50 | disposition home or self-care (01) ==
LOC: ED 15:36
DX: C64.9 Malignant neoplasm of unspecified kidney, except renal pelvis (principal); I10 Essential (primary) hypertension; K21.9 Gastro-esophageal reflux disease without esophagitis
CPT/HCPCS: 36415; 74176; 80053; 81001; 83690; 85025; 99284; Q0162

== ENCOUNTER 2020-06-22 18:09 | Emergency (ER) | payer MEDICARE ==
[2020-06-22 20:39] LABS: Basophils % (Auto) 0.3 % (0.0-1.8); Eosinophils % (Auto) 0.2 % (0.0-4.3); Hematocrit 45.2 % (35.5-45.6); Hemoglobin 14.5 gm/dl (11.8-15.2); Lymphocytes # (Auto) 0.9 K/mm3 (1.2-5.4); Lymphocytes % (Auto) 11.2 % (13.4-35.0); Mean Corpuscular HGB Conc 32 % (32-34); Mean Corpuscular Volume 89 fl (84-94); Monocytes # (Auto) 0.4 K/mm3 (0.0-0.8); Platelet Count 227 K/mm3 (140-440); Red Blood Count 5.08 M/mm3 (3.65-5.03); Red Cell Distribution Width 14.6 % (13.2-15.2)
[2020-06-22 20:55] LABS: Bacteria,Urine 1+ /HPF (Negative); Mucus,Urine FEW /HPF
[2020-06-22 20:56] LABS: Bilirubin,Urine NEG (Negative); Blood,Urine SM (Negative); Color,Urine Yellow (Yellow); Urobilinogen,Urine < 2.0 mg/dL (<2.0)
[2020-06-22 20:57] LABS: Protein,Urine >500 mg/dL (Negative)
[2020-06-22] MEDS ORDERED: ONDANSETRON 4 MG/2 ML INJ IV ONE (21:00)
[2020-06-22] MEDS ORDERED: MORPHINE 4 MG/1 ML INJ IV ONE (21:00)
--- NOTE | 2020-06-22 21:04 | Emergency Department Report ---
ED Abdominal Pain HPI - General Chief Complaint: Abdominal Pain Stated Complaint: ULCER/ABD PAIN Time Seen by Provider: 06/22/20 20:23 Source: patient Mode of arrival: Ambulatory Limitations: No Limitations - History of Present Illness Initial Comments: Patient is 70 years old male with history of renal cancer status post surgery approximately 3 years ago. Patient also had history of gastric ulcer and gastroesophageal reflux disease. Patient presented to the ER complaining of epigastric abdominal pain radiated down to his suprapubic area and sometimes diffuse. Patient described the pain as cramping and sharp in nature. Patient stated that pain started last night. Patient denied any fever or chills. No nausea vomiting or diarrhea. MD Complaint: abdominal pain -: Last night Location: diffuse, epigastric Radiation: none Migration to: no migration Severity: moderate Severity scale (0 -10): 5 Quality: cramping, sharp Consistency: intermittent Associated Symptoms: denies other symptoms - Related Data Home Medications Medication Instructions Recorded Confirmed Last Taken allopurinoL [Zyloprim] 100 mg PO QDAY 07/10/17 07/10/17 07/10/17 08:00 Previous Rx's Medication Instructions Recorded Last Taken Type Losartan [Cozaar] 100 mg PO DAILY #30 tablet 07/11/17 Unknown Rx amLODIPine 10 mg PO QDAY #30 tablet 07/11/17 Unknown Rx Acetaminophen/Codeine [Tylenol 1 tab PO Q6H PRN #8 tab 06/14/18 Unknown Rx /Codeine # 3 tab] Dicyclomine [Bentyl] 20 mg PO BID #20 tablet 09/20/19 Unknown Rx Famotidine [Pepcid] 10 mg PO BID #30 tablet 09/20/19 Unknown Rx Allergies Allergy/AdvReac Type Severity Reaction Status Date / Time No Known Allergies Allergy Unverified 07/10/17 10:15 ED Review of Systems ROS: Stated complaint: ULCER/ABD PAIN Other details as noted in HPI Comment: All other systems reviewed and negative Constitutional: denies: chills, fever Cardiovascular: denies: chest pain, palpitations, dyspnea on exertion Gastrointestinal: abdominal pain. denies: nausea, vomiting, diarrhea, constipation, hematemesis, melena, hematochezia Musculoskeletal: denies: back pain Neurological: denies: headache, weakness, numbness, paresthesias, confusion ED Past Medical Hx - Past Medical History Previous Medical History?: Yes Hx Hypertension: Yes Hx GERD: Yes Hx Renal Disease: Yes (renal cancer) Hx of Cancer: Yes (kidney) Additional medical history: GOUT, Gastric ulcers - Surgical History Past Surgical History?: Yes Additional Surgical History: ankle surgery, knee surgery, - Social History Smoking Status: Never Smoker Substance Use Type: Alcohol - Medications Home Medications: Home Medications Medication Instructions Recorded Confirmed Last Taken Type allopurinoL [Zyloprim] 100 mg PO QDAY 07/10/17 07/10/17 07/10/17 08:00 History Losartan [Cozaar] 100 mg PO DAILY #30 tablet 07/11/17 Unknown Rx amLODIPine 10 mg PO QDAY #30 tablet 07/11/17 Unknown Rx Acetaminophen/Codeine [Tylenol 1 tab PO Q6H PRN #8 tab 06/14/18 Unknown Rx /Codeine # 3 tab] Dicyclomine [Bentyl] 20 mg PO BID #20 tablet 09/20/19 Unknown Rx Famotidine [Pepcid] 10 mg PO BID #30 tablet 09/20/19 Unknown Rx ED Physical Exam - General Limitations: No Limitations General appearance: alert, in no apparent distress - Head Head exam: Present: atraumatic, normocephalic, normal inspection - Eye Eye exam: Present: normal appearance, PERRL - ENT ENT exam: Present: normal exam, normal orophraynx, mucous membranes moist - Neck Neck exam: Present: normal inspection, full ROM. Absent: tenderness, meningismus - Respiratory Respiratory exam: Present: normal lung sounds bilaterally - Cardiovascular Cardiovascular Exam: Present: regular rate, normal rhythm, normal heart sounds - GI/Abdominal GI/Abdominal exam: Present: soft, distended, normal bowel sounds. Absent: tenderness, guarding, rebound, rigid, mass, bruit, pulsatile mass, hernia - Extremities Exam Extremities exam: Present: normal inspection, full ROM, normal capillary refill. Absent: tenderness, pedal edema, joint swelling, calf tenderness - Back Exam Back exam: Present: normal inspection, full ROM. Absent: CVA tenderness (R), CVA tenderness (L) - Neurological Exam Neurological exam: Present: alert, oriented X3, CN II-XII intact - Psychiatric Psychiatric exam: Present: normal mood - Skin Skin exam: Present: warm, intact, normal color ED Course Vital Signs 06/22/20 06/22/20 06/22/20 18:18 20:30 21:18 Temperature 99.1 F Pulse Rate 61 55 L Respiratory 18 17 16 Rate Blood Pressure 182/92 171/74 O2 Sat by Pulse 98 96 Oximetry 06/22/20 06/22/20 06/22/20 21:31 22:31 23:00 Temperature Pulse Rate 49 L 49 L 48 L Respiratory 23 23 21 Rate Blood Pressure 186/88 162/87 147/87 O2 Sat by Pulse 92 96 91 Oximetry ED Medical Decision Making - Lab Data Result diagrams: 06/22/20 20:01 06/22/20 20:01 - Radiology Data Radiology results: report reviewed - Medical Decision Making Patient is 70 years old male with history of renal cancer status post surgery approximately 3 years ago. Patient also had history of gastric ulcer and gastroesophageal reflux disease. Patient presented to the ER complaining of epigastric abdominal pain radiated down to his suprapubic area and sometimes diffuse. Patient described the pain as cramping and sharp in nature. Patient stated that pain started last night. Patient denied any fever or chills. No nausea vomiting or diarrhea. Patient received morphine and Zofran for pain. Labs reviewed and is unremarkable except for chronic elevation of creatinine. CT abdomen and pelvis showed a stable bilateral renal complex consistent with his history of renal cell carcinoma. Patient stated that he is feeling much better. Patient advised to follow-up with his primary care physician in the next 2 to 3 days and to return to the ER if he develop any new symptoms. Critical care attestation.: If time is entered above; I have spent that time in minutes in the direct care of this critically ill patient, excluding procedure time. ED Disposition Clinical Impression: Acute abdominal pain, Renal cell carcinoma Disposition: - TO HOME OR SELFCARE Is pt being admited?: No Condition: Stable Instructions: Abdominal Pain, Adult, [id number] Referrals: ADWOA MENDOZA MD [Primary Care Provider] - 3-5 Days
[2020-06-22 21:05] LABS: Albumin 4.5 g/dL (3.9-5); Calcium 9.5 mg/dL (8.4-10.2)
--- NOTE | 2020-06-22 23:22 | Cat Scan Report ---
CT ABDOMEN AND PELVIS WITHOUT CONTRAST INDICATION / CLINICAL INFORMATION: ABDOMINAL PAIN/ h/o renal cancer. TECHNIQUE: Axial CT images were obtained through the abdomen and pelvis without IV contrast. All CT scans at this location are performed using CT dose reduction for ALARA by means of automated exposure control. COMPARISON: 32,[id number]. FINDINGS: LOWER CHEST: No significant abnormality. LIVER: No significant abnormality. GALLBLADDER: No significant abnormality. BILE DUCTS: No significant abnormality. PANCREAS: No significant abnormality. SPLEEN: No significant abnormality. ADRENALS: No significant abnormality. RIGHT KIDNEY / URETER: 2.1 cm complex lesion laterally is unchanged. LEFT KIDNEY / URETER: 2 complex lesions at the upper pole anteriorly measuring 4.6 cm in the lower po le measuring 3.2 cm or also unchanged. STOMACH / SMALL BOWEL: No significant abnormality. COLON: No significant abnormality. APPENDIX: No significant abnormality. PERITONEUM: No free fluid. No free air. No fluid collection. LYMPH NODES: No significant adenopathy. VASCULAR STRUCTURES: Mild atherosclerotic vascular calcification. URINARY BLADDER: No significant abnormality. REPRODUCTIVE ORGANS: No significant abnormality. ADDITIONAL FINDINGS: Small fat-containing umbilical hernia. SKELETAL SYSTEM: No significant abnormality. IMPRESSION: 1. Stable bilateral complex renal lesions. 2. Negative for obstruction or localized inflammation. Signer Name: Bijan Nichols MD Signed: 06/22/2020 11:18 PM Workstation Name: [id number]
[2020-06-22] MEDS ORDERED: PANTOPRAZOLE 40 MG INJ IV ONE (23:28)
[2020-06-23 00:35] VITALS: BP 147/84
== END 2020-06-23 00:35 | disposition home or self-care (01) ==
LOC: ED 18:09
DX: C64.9 Malignant neoplasm of unspecified kidney, except renal pelvis (principal); R10.13 Epigastric pain; I10 Essential (primary) hypertension; K21.9 Gastro-esophageal reflux disease without esophagitis; Z98.890 Other specified postprocedural states; Z79.899 Other long term (current) drug therapy
CPT/HCPCS: 36415; 74176; 80053; 81001; 83690; 85025; 96374; 96375; 99284; C9113; J2270; J2405